=== PATIENT | male | born 1960 | race Two or more races ===

== ENCOUNTER 2022-06-19 01:46 | Emergency (ER) | payer OTHER ==
[~2022-06-19] VITALS: Ht 175.3 cm; Wt 81.6 kg
--- NOTE | 2022-06-19 02:17 | NUR ---
Pt is noted alert, responsive as he came from home C/O Absess to posterior Head [id number]. Pt care continue as awaits MD orders as MD at bedside.
[2022-06-19] MEDS ORDERED: SULF1TAB48 PO (02:28)
--- NOTE | 2022-06-19 02:40 | NUR ---
Pt is stable as he is been discharge to home with no s/s off distress as all dischsrge instructions given.
[2022-06-19 02:42] VITALS: BP 135/67
== END 2022-06-19 02:43 | disposition home or self-care (01) ==
LOC: ER 01:48
DX: L73.9 Follicular disorder, unspecified (principal)

== ENCOUNTER 2024-10-09 14:38 | Emergency (ER) | payer MEDICARE, OTHER ==
[~2024-10-09] VITALS: Ht 175.3 cm; Wt 70.8 kg
[~2024-10-09 14:38] MED LIST: SULF1TAB48 PO
[2024-10-09] MEDS ORDERED: ONDANSETRON HCL/PF 4 MG/2 ML VIAL ONE (15:29)
[2024-10-09] MEDS: ONDANSETRON HCL/PF 4 MG/2 ML VIAL IVP ONE (15:51)
[2024-10-09] MEDS: VANCOMYCIN 1 GM in IV D5W 250 ML IV ONE (15:51)
[2024-10-09] MEDS: PIPERACILLIN /TAZOBACTAM 3.375 G in IV D5W 50 ML IV ONE (15:51)
[2024-10-09] MEDS: IV NS 0.9% 1,000 ML BAG IV ONE (15:51)
[2024-10-09 15:57] VITALS: BP 126/77; TEMP 98.5; O2SAT 100
[2024-10-11] MEDS ORDERED: MAG HYDROX/AL HYDROX/SIMETH 30 ML UDC ONE (00:08)
[2024-10-11] MEDS ORDERED: PANTOPRAZOLE 40 MG VIAL ONE (00:08)
[2024-10-14] MEDS ORDERED: NITR100C PO (14:56)
== END 2024-10-09 15:58 | disposition left against medical advice (07) ==
LOC: ER 14:38
DX: R11.0 Nausea (principal); E11.621 Type 2 diabetes mellitus with foot ulcer; I10 Essential (primary) hypertension; Z88.6 Allergy status to analgesic agent; Z93.0 Tracheostomy status; Z93.1 Gastrostomy status; Z79.899 Other long term (current) drug therapy
CPT/HCPCS: J2405; J2470; J2543; J3373; J7030; J7060

== ENCOUNTER 2024-10-10 18:49 | Inpatient (IN) | payer MEDICARE ==
[~2024-10-10] VITALS: Ht 175.3 cm; Wt 72.6 kg
[2024-10-10] MEDS ORDERED: ONDANSETRON HCL/PF 4 MG/2 ML VIAL ONE (20:12)
[2024-10-10] MEDS: ONDANSETRON HCL/PF 4 MG/2 ML VIAL IV ONE (20:15)
[2024-10-10] MEDS: IV NS 0.9% 1,000 ML BAG IV ONE (20:15)
[2024-10-10 20:22] LABS: PLATELET COUNT (AUTO) 193 K/uL (150-450); RED BLOOD CELL COUNT(AUTO) 3.47 MIL/uL (4.5-6.0); RED CELL DISTRIBUTION WIDTH 16.7 % (11.5-15.0); WHITE BLOOD COUNT (AUTO) 9.5 K/uL (4.3-11.0)
[2024-10-10 20:31] LABS: CALCIUM, SERUM 8.5 mg/dL (8.5-10.1); CREATININE 1.3 mg/dL (0.6-1.3); SODIUM SERUM 133 mmol/L (136-145); UREA NITROGEN, BLOOD 20 mg/dL (7-18)
[2024-10-10 20:37] LABS: ASPARTATE AMINOTRANSFERASE 22 U/L (15-37); TOTAL PROTEIN, SERUM 6.5 g/dL (6.4-8.2)
[2024-10-11] MEDS: FAMOTIDINE/PF INJ 20 MG/2 ML VIAL IV ONE (00:14)
[2024-10-11] MEDS: MAG HYDROX/AL HYDROX/SIMETH 30 ML UDC PO ONE (00:14)
[2024-10-11] MEDS ORDERED: DEXTROSE 50%-WATER 50 ML DISP.SYRIN IV PRN (00:30)
[2024-10-11] MEDS ORDERED: Z GUARD REMEDY 4 OZ OINT TP PRN (00:30)
[2024-10-11] MEDS ORDERED: ONDANSETRON HCL/PF 4 MG/2 ML VIAL IVP PRN (00:30)
[2024-10-11] MEDS ORDERED: MAG HYDROX/AL HYDROX/SIMETH 30 ML UDC PO PRN (00:30)
[2024-10-11] MEDS ORDERED: MAGNESIUM HYDROXIDE 30 ML UDC PO PRN (00:30)
[2024-10-11] MEDS ORDERED: ACETAMINOPHEN 650 MG/SUPP.RECT RC PRN (00:30)
[2024-10-11] MEDS: ONDANSETRON HCL/PF 4 MG/2 ML VIAL IV ONE (00:40)
[2024-10-11] MEDS: IV NS 0.9% 1,000 ML IV SCH (03:07)
[2024-10-11] MEDS: BLOOD SUGAR DIAGNOSTIC 1 EACH STRIP IN SCH (03:07)
[2024-10-11] MEDS: INSULIN REGULAR, HUMAN 100 UNIT/ML 3 ML VIAL SQ PRN (03:11)
[2024-10-11 07:02] LABS: PLATELET COUNT (AUTO) 184 K/uL (150-450); RED BLOOD CELL COUNT(AUTO) 3.32 MIL/uL (4.5-6.0); RED CELL DISTRIBUTION WIDTH 16.6 % (11.5-15.0); WHITE BLOOD COUNT (AUTO) 10.4 K/uL (4.3-11.0)
[2024-10-11 07:05] LABS: CALCIUM, SERUM 8.3 mg/dL (8.5-10.1); CREATININE 1.2 mg/dL (0.6-1.3); SODIUM SERUM 134.0 mmol/L (136-145); UREA NITROGEN, BLOOD 18.0 mg/dL (7-18)
[2024-10-11 08:00] VITALS: BP 118/79; TEMP 97.9; O2SAT 98
[2024-10-11] MEDS ORDERED: ALBUTEROL FS 2.5 MG/0.5 ML VIAL.NEB NEB PRN (10:30)
[2024-10-11] MEDS: POTASSIUM CL. PREMIX PERIPHER. 50 ML IV SCH (11:00)
[2024-10-11 16:00] VITALS: BP 123/77; TEMP 97.8; O2SAT 98
[2024-10-11 20:31] VITALS: BP 132/68; TEMP 98; O2SAT 98
[2024-10-11 22:32] LABS: APPEARANCE,URINE TURBID (CLEAR); BLOOD, URINE 3+ Ery/uL (NEGATIVE); LEUKOCYTE ESTERASE ,URINE 3+ (NEGATIVE); NITRITE, URINE NEGATIVE (NEGATIVE); UGLUCOSE 1+ mg/dL (NEGATIVE)
[2024-10-11 22:39] LABS: CREATININE, URINE 85.6 MG/DL (30.0-125.0); URINE SODIUM, RANDOM 33.0 mmol/l (40-220); URINE TOTAL PROTEIN 499.3 mg/dL (0-11.9)
[2024-10-11 22:53] LABS: ADD URINE CULTURE YES; SQUAMOUS EPITHELIAL CELL,UR Few /HPF (None Seen)
[2024-10-11 23:20] LABS: EOSINOPHIL,URINE None Seen
[2024-10-12 07:00] VITALS: BP 139/90; TEMP 97.2; O2SAT 100
[2024-10-12 07:29] LABS: CALCIUM, SERUM 8.4 mg/dL (8.5-10.1); CREATININE 1.1 mg/dL (0.6-1.3); PHOSPHORUS 2.8 mg/dL (2.5-4.9); SODIUM SERUM 134.0 mmol/L (136-145); UREA NITROGEN, BLOOD 13.0 mg/dL (7-18)
[2024-10-12 08:00] VITALS: BP 139/90; TEMP 97.2; O2SAT 100
[2024-10-12] MEDS ORDERED: DOSING PER PHARMACY-CEFEPIME IVPB XX PRN (08:30)
[2024-10-12] MEDS: CEFEPIME 2 GM in IV D5W 100 ML IV SCH (10:21)
[2024-10-12 16:00] VITALS: BP 149/93; TEMP 97.4; O2SAT 100
[2024-10-12 20:00] VITALS: BP 142/87; TEMP 98.6; O2SAT 99
[2024-10-13] VITALS: BP 125/89; TEMP 98.4; O2SAT 100
[2024-10-13 07:00] VITALS: BP 161/88; TEMP 97.7; O2SAT 98
[2024-10-13 07:49] LABS: ASPARTATE AMINOTRANSFERASE 24.0 U/L (15-37); CALCIUM, SERUM 7.9 mg/dL (8.5-10.1); CREATININE 0.9 mg/dL (0.6-1.3); PHOSPHORUS 2.7 mg/dL (2.5-4.9); SODIUM SERUM 132.0 mmol/L (136-145); TOTAL PROTEIN, SERUM 5.6 g/dL (6.4-8.2); UREA NITROGEN, BLOOD 13.0 mg/dL (7-18)
[2024-10-13 08:04] LABS: CREATINE KINASE, TOTAL 37.0 U/L (39-308)
[2024-10-13 08:19] LABS: PLATELET COUNT (AUTO) 180 K/uL (150-450); RED BLOOD CELL COUNT(AUTO) 3.22 MIL/uL (4.5-6.0); RED CELL DISTRIBUTION WIDTH 17.0 % (11.5-15.0); WHITE BLOOD COUNT (AUTO) 10.4 K/uL (4.3-11.0)
[2024-10-13] MEDS: Magnesium 1GM/D5W 100ML PREMIX 100 ML IV SCH (13:52)
[2024-10-13 16:00] VITALS: BP 140/100; TEMP 97.5; O2SAT 100
[2024-10-13 21:16] VITALS: BP 153/95; TEMP 98.6; O2SAT 100
[2024-10-13 22:35] VITALS: BP 132/80; TEMP 98; O2SAT 99
[2024-10-14 08:00] VITALS: BP 159/78; TEMP 98.1; O2SAT 100
[2024-10-14 08:07] LABS: PTH, INTACT 36 pg/mL (15-65)
[2024-10-14] MEDS ORDERED: NITR100C PO (14:56)
[2024-10-14 16:00] VITALS: BP 135/94; TEMP 97.5; O2SAT 100
[2024-10-19 13:07] LABS: *SPE A/G RATIO 0.8 (0.7-1.7); *SPE ALBUMIN 2.3 g/dL (2.9-4.4); *SPE ALPHA-1-GLOBULIN 0.2 g/dL (0.0-0.4); *SPE ALPHA-2-GLOBULIN 0.6 g/dL (0.4-1.0); *SPE BETA GLOBULIN 0.8 g/dL (0.7-1.3); *SPE GLOBULIN, TOTAL 2.8 g/dL (2.2-3.9); *SPE M-SPIKE Not Observed g/dL (Not Observed); *SPE PROTEIN TOTAL 5.1 g/dL (6.0-8.5); *SPEGAMMA GLOBULIN 1.2 g/dL (0.4-1.8)
== END 2024-10-14 18:09 | DRG 641 ==
LOC: ER 18:52 → TELE 10-11 01:06 → MED 10-11 02:38 → TELE 10-12 02:52
PROVIDERS: ADMIT Internal Medicine; ATTEND Internal Medicine
PROC: 0DP6XUZ Removal of Feeding Device from Stomach, External Approach (ICD-10-PCS; principal; 2024-10-13)
DX: R62.7 Adult failure to thrive (principal); N39.0 Urinary tract infection, site not specified; Z43.1 Encounter for attention to gastrostomy; N17.9 Acute kidney failure, unspecified; R42 Dizziness and giddiness; R11.0 Nausea; E87.6 Hypokalemia; B96.20 Unspecified Escherichia coli [E. coli] as the cause of diseases classified elsewhere; N18.2 Chronic kidney disease, stage 2 (mild); R13.10 Dysphagia, unspecified; Z79.84 Long term (current) use of oral hypoglycemic drugs; Z87.01 Personal history of pneumonia (recurrent); E11.22 Type 2 diabetes mellitus with diabetic chronic kidney disease; K21.9 Gastro-esophageal reflux disease without esophagitis; E11.40 Type 2 diabetes mellitus with diabetic neuropathy, unspecified; D63.8 Anemia in other chronic diseases classified elsewhere; R55 Syncope and collapse; E11.621 Type 2 diabetes mellitus with foot ulcer; L97.529 Non-pressure chronic ulcer of other part of left foot with unspecified severity; E83.9 Disorder of mineral metabolism, unspecified; M89.9 Disorder of bone, unspecified; Z68.23 Body mass index [BMI] 23.0-23.9, adult; I12.9 Hypertensive chronic kidney disease with stage 1 through stage 4 chronic kidney disease, or unspecified chronic kidney disease; E86.9 Volume depletion, unspecified
CPT/HCPCS: 36415; 71045-TC; 80048-TC; 80053-TC; 80076-TC; 81001; 82550-TC; 82570-TC; 82962-TC; 83690-TC; 83735-TC; 83970; 84100-TC; 84155; 84165; 84300-TC; 84484-TC; 85025-TC; 87081-TC; 87086-TC; 87186-TC; 92526; 92611; 97116-TC; 97530-TC; A4223; G0378; J0692; J1815; J2405; J3475; J3480; J7030; J7060

== ENCOUNTER 2025-02-04 05:58 | Emergency (ER) | payer MEDICARE, OTHER ==
[~2025-02-04] VITALS: Ht 172.7 cm; Wt 77.1 kg
[~2025-02-04 05:58] MED LIST changes: +NITR100C PO; -SULF1TAB48 PO
[2025-02-04 09:22] VITALS: BP 164/86; TEMP 98.4; O2SAT 99
== END 2025-02-04 09:24 ==
LOC: ER 06:00
DX: S83.412A Sprain of medial collateral ligament of left knee, initial encounter (principal); E11.40 Type 2 diabetes mellitus with diabetic neuropathy, unspecified; Z87.01 Personal history of pneumonia (recurrent); Z88.6 Allergy status to analgesic agent; W19.XXXA Unspecified fall, initial encounter; Y93.89 Activity, other specified; Y92.89 Other specified places as the place of occurrence of the external cause; Y99.8 Other external cause status
CPT/HCPCS: 73564-TC